=== PATIENT | female | born 1970 | race Caucasian/White ===

== ENCOUNTER → 2016-12-18 | Outpatient (CLI) | payer OTHER ==
--- NOTE | 2016-12-18 10:22 | US ---
EXAMINATION TYPE: US pelvis complete transvag DATE OF EXAM: 12/18/2016 COMPARISON: NONE CLINICAL HISTORY: LLQ Pelvic Pain R10.2. Generalized pelvic discomfort, Tubal ligation x 2005 TECHNIQUE: Transvaginal (TV) and Transabdominal (TA) Date of LMP: 12/13/2016, EXAM MEASUREMENTS: Uterus: 9.5 x 6.2 x 5.0 cm Endometrial Stripe: 0.5 cm Left Ovary: 7.6 x 6.7 x 4.7 cm Transvaginal exam performed due to nonvisualized right ovary transabdominally. Limited transvaginal exam. 1. Uterus: Anteverted wnl as visualized, not swell seen transvaginally. 2. Endometrium: wnl 3. Right Ovary: Obscured by overlying bowel gas 4. Left Ovary: Only seen transabdominally, cystic lesion seen = 7.1 x 6.2 x 4.1 cm. Color doppler imaging shows good vascular flow within the ovaries; 5. Bilateral Adnexa: wnl 6. Posterior cul-de-sac: no free fluid Uterus is heterogeneous in appearance. Endometrium is not suspiciously thickened. IMPRESSION: Abnormal enlarged left ovary with large cystic lesions posterior to bladder difficult to completely imaged due to size, cystic neoplasm cannot be excluded. Advise gynecology oncology referra l. Advise pelvic MRI to better evaluate and characterize due to size. Presence of large left ovarian cystic lesion and displacement of left ovary from midline increases possibility for ovarian torsion. A Yellow message has been communicated to Franklyn Cat DO via the [employer] system on 12/18/2016 10:19 AM, Message ID [id number].
== END ==
LOC: RADUSWWP 07:54
PROVIDERS: ATTEND Family Medicine
DX: N32.9 Bladder disorder, unspecified (principal); N83.8 Other noninflammatory disorders of ovary, fallopian tube and broad ligament
CPT/HCPCS: 76830; 76856

== ENCOUNTER → 2017-01-29 | Outpatient (CLI) | payer OTHER ==
--- NOTE | 2017-01-29 15:32 | US ---
EXAMINATION TYPE: US pelvis complete transvag DATE OF EXAM: 01/29/2017 COMPARISON: NONE CLINICAL HISTORY: Pelvic Mass R19.00. left adnexal fullness during physical exam TECHNIQUE: TA/TV Date of LMP: 01/15/2017 EXAM MEASUREMENTS: Uterus: 11.2 x 5.7 x 4.9 cm Endometrial Stripe: 0.5 cm Right Ovary: 2.5 x 2.0 x 1.5cm cm Left Ovary: 2.9 x 4.1 x 2.3 cm TV imaging was limited due to bowel gas and flexion of enlarged UT 1. Uterus: Anteverted , enlarged, otherwise wnl 2. Endometrium: wnl 3. Right Ovary: wnl 4. Left Ovary: 2.0cm follicle seen 5. Bilateral Adnexa: wnl 6. Posterior cul-de-sac: wnl IMPRESSION: 1. Uterus is enlarged without distinct mass identified. 2. Left ovarian follicular cyst.
== END | disposition home or self-care (01) ==
LOC: RADUSWWP 13:31
PROVIDERS: ATTEND Obstetrics & Gynecology
DX: N85.2 Hypertrophy of uterus (principal); N83.02 Follicular cyst of left ovary
CPT/HCPCS: 76830; 76856

== ENCOUNTER → 2018-02-19 | Outpatient (CLI) | payer OTHER ==
--- NOTE | 2018-02-26 07:47 | MM ---
Reason for exam: screening (asymptomatic). Last mammogram was performed 1 year and 1 month ago. History: Patient had first child at age 30. Took hormonal contraceptives for 8 years beginning at age 19. MG 3D Screening Mammo W/Cad Bilateral CC and MLO view(s) were taken. Prior study comparison: January 22, 2017, bilateral MG 3d screening mammo w/cad. November 15, 2015, bilateral MG 3d screening mammo w/cad. There are scattered fibroglandular densities. No significant changes when compared with prior studies. ASSESSMENT: Negative, BI-RAD 1 RECOMMENDATION: Routine screening mammogram of both breasts in 1 year.
== END | disposition home or self-care (01) ==
LOC: RADMAMWWP 08:49
PROVIDERS: ATTEND Family Medicine
DX: Z12.31 Encounter for screening mammogram for malignant neoplasm of breast (principal)
CPT/HCPCS: 77063; 77067

== ENCOUNTER → 2022-04-30 | Outpatient (CLI) | payer OTHER ==
--- NOTE | 2022-04-30 13:12 | US ---
EXAMINATION TYPE: US pelvis complete transvag DATE OF EXAM: 04/30/2022 COMPARISON: 01/29/2017 CLINICAL HISTORY: N85.00 endometrial hyperlasia unspecified. endometrial hyperplasia TECHNIQUE: Transvaginal (TV) and Transabdominal (TA) . Transabdominal sonographic images of the pel vis were acquired. Transvaginal sonographic images were medically necessary to better assess the fol lowing anatomy: EXAM MEASUREMENTS: Uterus: 9.5 x 4.2 x 5.2 cm Endometrial Stripe: .4 cm 1. Uterus: Anteverted wnl 2. Endometrium: wnl 3. Right Ovary: Obscured by overlying bowel gas 4. Left Ovary: Obscured by overlying bowel gas 5. Bilateral Adnexa: wnl 6. Posterior cul-de-sac: wnl IMPRESSION: No significant abnormality appreciated.
== END | disposition home or self-care (01) ==
LOC: RADUSWWP 12:16
PROVIDERS: ATTEND Family Medicine
DX: N85.00 Endometrial hyperplasia, unspecified (principal)
CPT/HCPCS: 76830; 76856

== ENCOUNTER → 2023-04-20 | Outpatient (CLI) | payer BC ==
--- NOTE | 2023-04-20 09:09 | XR ---
EXAMINATION TYPE: XR shoulder complete BILAT DATE OF EXAM: 04/20/2023 8:52 AM CLINICAL INDICATION:Female, 53 years old with history of [id number] FAUSTINA SHLD PAIN; [facility] COMPARISON: None TECHNIQUE: XR shoulder complete BILAT; examined in AP, internally rotated and scapular Y projections. FINDINGS: No evidence of acute osseous pathology, joint dislocation, or soft tissue swelling. The remaining po rtions of the visualized chest are unremarkable. Mild degeneration changes of the acromion, distal c lavicle with osteophyte formation. There is osteophyte formation of the glenoid and humeral head. The re is joint space narrowing of glenohumeral joint IMPRESSION: No acute osseous pathology. 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
== END | disposition home or self-care (01) ==
LOC: RADXRYALE 08:38
PROVIDERS: ATTEND Physician Assistant Medical
DX: M19.012 Primary osteoarthritis, left shoulder (principal); M19.011 Primary osteoarthritis, right shoulder